=== PATIENT | female | born 1940 | race Caucasian/White ===

== ENCOUNTER 2016-10-17 19:38 | Emergency (ER) | payer MEDICARE, OTHER ==
[~2016-10-17 19:38] MED LIST: ATIVAN1 MG PO; AUGMENTIN 875-1 EACH PO; CARAFATE1 GM PO; DEMADEX20 MG PO; HYDROCODONE-APA1 TAB PO; MICRO-K10 MEQ PO; MUCINEX OTC; TRANDATE100 MG PO; VITAMIN B 12
[2016-10-17 20:40] LABS: BILIRUBIN NEGATIVE (NEGATIVE); BLOOD 1+ Ery/uL (NEGATIVE); CLARITY CLEAR (CLEAR); COLOR YELLOW (YELLOW); GLUCOSE (U) NORMAL (NORMAL); KETONE (U) NEGATIVE (NEGATIVE); LEUKOCYTES TRACE Leu/uL (NEGATIVE); NITRITE NEGATIVE (NEGATIVE); PROTEIN NEGATIVE (NEGATIVE); UROBILINOGEN 0.2 mg/dL (0.2-1.0); pH 5.5 (5.0-9.0)
[2016-10-17 20:46] LABS: BACTERIA TRACE; URINARY WBC RARE
[2016-10-17 22:08] LABS: HCT 41.3 % (37.0-47.0); HGB 13.2 g/dl (12.5-16.0); MCH 29.8 pg (25.0-31.0); MCV 93.2 fL (78.0-100.0); MPV 10.1 fL (6.0-9.5); RBC 4.43 M/uL (4.20-5.40); RDW 13.8 % (11.5-14.0); WBC 12.1 K/uL (4.0-10.5)
[2016-10-17 22:24] LABS: ALBUMIN 4.1 g/dL (3.4-4.8); BILIRUBIN - TOTAL 0.4 mg/dL (0.1-1.0); CREATININE 0.8 mg/dL (0.5-1.0); GLOBULIN (CALCULATION) 2.9 g/dL (2.2-4.2); POTASSIUM 3.6 mmol/L (3.5-5.1)
== END 2016-10-17 23:04 | disposition home or self-care (01) ==
LOC: FER 19:38
PROVIDERS: Nurse Practitioner
DX: R21 Rash and other nonspecific skin eruption (principal); I11.9 Hypertensive heart disease without heart failure; I48.91 Unspecified atrial fibrillation; Z88.0 Allergy status to penicillin; Z88.5 Allergy status to narcotic agent; Z91.041 Radiographic dye allergy status; Z95.0 Presence of cardiac pacemaker
CPT/HCPCS: 36415; 80053; 81001

== ENCOUNTER 2016-11-27 13:54 | Emergency (ER) | payer MEDICARE, OTHER ==
[2016-11-27 16:47] LABS: BASOPHIL 0.2 % (0-2); EOSINOPHIL 1.4 % (0-7); HCT 39.9 % (37.0-47.0); HGB 13.1 g/dl (12.5-16.0); LYMPHOCYTE 4.3 % (15-48); MCH 30.7 pg (25.0-31.0); MCHC 32.8 g/dL (32.0-36.0); MCV 93.4 fL (78.0-100.0); MONOCYTE 6.5 % (0-12); MPV 10.5 fL (6.0-9.5); NEUTROPHIL 87.6 % (41-80); PLT 224 K/uL (150-400); RBC 4.27 M/uL (4.20-5.40); RDW 13.2 % (11.5-14.0); WBC 16.6 K/uL (4.0-10.5)
== END 2016-11-27 18:02 | disposition home or self-care (01) ==
LOC: FER 13:54
PROVIDERS: Nurse Practitioner Family
DX: M10.021 Idiopathic gout, right elbow (principal); I10 Essential (primary) hypertension; I48.91 Unspecified atrial fibrillation; Z88.5 Allergy status to narcotic agent; Z88.8 Allergy status to other drugs, medicaments and biological substances; Z95.0 Presence of cardiac pacemaker; Z79.899 Other long term (current) drug therapy
CPT/HCPCS: 36415; 73080; 84550; 85025; 99283

== ENCOUNTER 2016-12-18 12:12 | Emergency (ER) | payer MEDICARE, OTHER ==
[2016-12-18 13:35] LABS: BILIRUBIN NEGATIVE (NEGATIVE); BLOOD TRACE-INTACT Ery/uL (NEGATIVE); CLARITY CLEAR (CLEAR); COLOR YELLOW (YELLOW); GLUCOSE (U) NORMAL (NORMAL); KETONE (U) NEGATIVE (NEGATIVE); LEUKOCYTES 2+ Leu/uL (NEGATIVE); NITRITE NEGATIVE (NEGATIVE); PROTEIN NEGATIVE (NEGATIVE); UROBILINOGEN 0.2 mg/dL (0.2-1.0)
[2016-12-18 13:42] LABS: BASOPHIL 0.5 % (0-2); EOSINOPHIL 3.1 % (0-7); HCT 39.8 % (37.0-47.0); HGB 12.6 g/dl (12.5-16.0); LYMPHOCYTE 9.2 % (15-48); MCH 29.9 pg (25.0-31.0); MCHC 31.7 g/dL (32.0-36.0); MCV 94.5 fL (78.0-100.0); MONOCYTE 8.1 % (0-12); MPV 10.9 fL (6.0-9.5); NEUTROPHIL 79.1 % (41-80); PLT 223 K/uL (150-400); RBC 4.21 M/uL (4.20-5.40); RDW 13.3 % (11.5-14.0); WBC 9.9 K/uL (4.0-10.5)
[2016-12-18 13:56] LABS: BACTERIA TRACE
[2016-12-18 13:59] LABS: LACTIC ACID 0.9 mmol/L (0.5-2.2)
[2016-12-18 14:00] LABS: ALBUMIN 4.4 g/dL (3.4-4.8); BILIRUBIN - TOTAL 0.7 mg/dL (0.1-1.0); CREATININE 0.8 mg/dL (0.5-1.0); GLOBULIN (CALCULATION) 2.6 g/dL (2.2-4.2); POTASSIUM 3.8 mmol/L (3.5-5.1)
== END 2016-12-18 16:50 | disposition home or self-care (01) ==
LOC: FER 12:12
PROVIDERS: Nurse Practitioner
DX: N30.00 Acute cystitis without hematuria (principal); I48.91 Unspecified atrial fibrillation; Z85.038 Personal history of other malignant neoplasm of large intestine; Z90.710 Acquired absence of both cervix and uterus; Z90.49 Acquired absence of other specified parts of digestive tract; Z95.0 Presence of cardiac pacemaker; Z88.5 Allergy status to narcotic agent; M85.80 Other specified disorders of bone density and structure, unspecified site; M25.50 Pain in unspecified joint; M89.8X9 Other specified disorders of bone, unspecified site; M85.852 Other specified disorders of bone density and structure, left thigh
CPT/HCPCS: 36415; 71250; 77080; 80053; 81001; 82150; 83605; 83690; 85025; 87088; J2060

== ENCOUNTER 2020-09-13 00:18 | Emergency (ER) | payer MEDICARE, OTHER ==
[~2020-09-13 00:18] MED LIST changes: +ALDACTONE25 MG PO; +ALLOPURINOL300 MG PO; +AMOX TR-K CLV1 EAC4 PO; +ATIVAN1 M1 PO; +BUMEX1 MG PO; +CLEOCIN300 MG PO; +COLACE100 MG PO; +COLCHICINE0.6 M1 PO; +COLCHICINE0.6 MG PO; +COLCRYS0.6 MG PO; +DICLOFENAC SODI50 MG PO; +FLEXERIL10 MG PO; +FLEXERIL5 MG PO; +K-DUR20 MEQ PO; +KEFLEX250 MG PO; +KETOROLAC TROME10 MG PO; +LABETALOL HCL200 MG PO; +LACTINEX1 EACH PO; +LASIX40 MG PO; +MOBIC7.5 MG PO; +NEURONTIN100 MG PO; +NORVASC5 MG PO; +PRAMIPEXOLE0.125 MG PO; +PREDNISONE 20MG20 MG PO; +PYRIDIUM100 MG PO; +SYNTHROID25 MCG PO; +TORSEMIDE100 MG PO; +TRIAMCINOLONE 080 GM TOP; +ULTRAM50 MG PO; +XARELTO20 MG PO; +ZOFRAN8 MG PO
[2020-09-13 00:51] LABS: BASOPHIL 0.3 % (0-2); EOSINOPHIL 0.3 % (0-7); HCT 36.9 % (37.0-47.0); HGB 11.6 g/dl (12.5-16.0); LYMPHOCYTE 5.5 % (15-48); MCH 29.7 pg (25.0-31.0); MCHC 31.4 g/dL (32.0-36.0); MCV 94.4 fL (78.0-100.0); MONOCYTE 8.3 % (0-12); MPV 11.6 fL (6.0-9.5); NRBC 0; PLT 260 K/uL (150-400); RBC 3.91 M/uL (4.20-5.40); RDW 13.6 % (11.5-14.0); WBC 18.6 K/uL (4.0-10.5)
[2020-09-13 01:12] LABS: ALBUMIN 3.5 g/dL (3.4-5.0); BILIRUBIN - TOTAL 0.6 mg/dL (0.2-1.0); BUN/CREAT RATIO (CALC) 23.2 RATIO; C-REACTIVE PROTEIN 13.9 mg/dL (<=0.90); CREATININE 0.95 mg/dL (0.51-0.95); TOTAL PROTEIN 7.5 g/dL (6.4-8.2)
[2020-09-13 01:18] LABS: POTASSIUM 4.6 mmol/L (3.5-5.1)
[2020-09-13] MEDS ORDERED: CLEOCIN300 MG PO (02:15)
[2020-09-13] MEDS ORDERED: DICLOFENAC SODI50 MG PO (02:15)
[2020-09-13] MEDS ORDERED: NORCO 5-325 TA1 EACH PO (02:15)
== END 2020-09-13 02:25 | disposition home or self-care (01) ==
LOC: FER 00:18
PROVIDERS: Emergency Medicine Emergency Medical Services
DX: M10.032 Idiopathic gout, left wrist (principal); M10.042 Idiopathic gout, left hand; I48.91 Unspecified atrial fibrillation; J44.9 Chronic obstructive pulmonary disease, unspecified; I11.0 Hypertensive heart disease with heart failure; I50.9 Heart failure, unspecified; Z99.81 Dependence on supplemental oxygen; Z88.5 Allergy status to narcotic agent; Z88.6 Allergy status to analgesic agent; Z91.041 Radiographic dye allergy status
CPT/HCPCS: 36415; 73110; 80053; 83880; 84145; 84550; 85025; 86140; J1885; J2405

== ENCOUNTER 2021-08-03 17:43 | Emergency (ER) | payer MEDICARE, OTHER ==
[~2021-08-03 17:43] MED LIST changes: +ALLOPURINOL100 MG PO; +NORCO 5-325 TA1 EACH PO; +VIBRAMYCIN100 MG PO
[2021-08-03 18:20] LABS: BASOPHIL 0.2 % (0-2); EOSINOPHIL 0.2 % (0-7); HCT 35.1 % (37.0-47.0); HGB 11.2 g/dl (12.5-16.0); LYMPHOCYTE 2.7 % (15-48); MCH 30.5 pg (25.0-31.0); MCHC 31.9 g/dL (32.0-36.0); MCV 95.6 fL (78.0-100.0); MONOCYTE 8.4 % (0-12); MPV 11.2 fL (6.0-9.5); NEUTROPHIL 87.9 % (41-80); NRBC 0; PLT 263 K/uL (150-400); RBC 3.67 M/uL (4.20-5.40); RDW 13.2 % (11.5-14.0); WBC 21.6 K/uL (4.0-10.5)
[2021-08-03 18:40] LABS: ALBUMIN 3.4 g/dL (3.4-5.0); BILIRUBIN - TOTAL 0.7 mg/dL (0.2-1.0); BUN/CREAT RATIO (CALC) 33.5 RATIO; CREATININE 1.58 mg/dL (0.51-0.95); POTASSIUM 5.6 mmol/L (3.5-5.1); TOTAL PROTEIN 7.4 g/dL (6.4-8.2)
[2021-08-03 18:57] LABS: INR 1.31 (0.9-1.2); PROTHROMBIN TIME 15.6 SECONDS (11.8-13.4); PTT 33.1 SECONDS (24.4-34.7)
[2021-08-03 18:59] LABS: CORONAVIRUS 2019 SARS-COV-2 NEGATIVE (NEGATIVE); INFLUENZA A NAA NEGATIVE (NEGATIVE)
[2021-08-03 19:19] LABS: LACTIC ACID 1.4 mmol/L (0.4-1.9)
[2021-08-03 22:05] LABS: BILIRUBIN NEGATIVE (NEGATIVE); BLOOD NEGATIVE Ery/uL (NEGATIVE); CLARITY CLEAR (CLEAR); COLOR YELLOW (YELLOW); GLUCOSE (U) NORMAL (NORMAL); LEUKOCYTES NEGATIVE Leu/uL (NEGATIVE); NITRITE NEGATIVE (NEGATIVE); PROTEIN NEGATIVE (NEGATIVE); SPECIFIC GRAVITY 1.015 (1.001-1.030); UROBILINOGEN 0.2 mg/dL (0.2-1.0); pH 5.5 (5.0-9.0)
[2021-08-04 08:52] LABS: BASOPHIL 0.3 % (0-2); EOSINOPHIL 1.6 % (0-7); HCT 35.3 % (37.0-47.0); LYMPHOCYTE 5.4 % (15-48); MCH 30.6 pg (25.0-31.0); MCHC 31.2 g/dL (32.0-36.0); MCV 98.3 fL (78.0-100.0); MONOCYTE 7.9 % (0-12); MPV 12.1 fL (6.0-9.5); NEUTROPHIL 84.2 % (41-80); NRBC 0; PLT 206 K/uL (150-400); RBC 3.59 M/uL (4.20-5.40); RDW 13.1 % (11.5-14.0); WBC 17.3 K/uL (4.0-10.5)
[2021-08-04 09:20] LABS: CREATININE 1.39 mg/dL (0.51-0.95); POTASSIUM 4.2 mmol/L (3.5-5.1)
== END 2021-08-04 09:04 | disposition other institution (70) ==
LOC: FER 17:43
PROVIDERS: Emergency Medicine; Emergency Medicine Emergency Medical Services
DX: L02.211 Cutaneous abscess of abdominal wall (principal); L03.311 Cellulitis of abdominal wall; J96.01 Acute respiratory failure with hypoxia; I11.0 Hypertensive heart disease with heart failure; I50.9 Heart failure, unspecified; I48.91 Unspecified atrial fibrillation; J44.9 Chronic obstructive pulmonary disease, unspecified; Z88.6 Allergy status to analgesic agent; Z88.5 Allergy status to narcotic agent; Z20.822 Contact with and (suspected) exposure to COVID-19
CPT/HCPCS: 36415; 36600; 71250; 80048; 80053; 81003; 82803; 83605; 84145; 85025; 85610; 85730; 87040; 87077; 87088; 87186; 93005; C9113; J2405; J2543; J7030; U0002

== ENCOUNTER 2022-03-26 12:25 | Emergency (ER) | payer MEDICARE, OTHER ==
[2022-03-26 13:40] LABS: BASOPHIL 0.6 % (0-2); EOSINOPHIL 3.3 % (0-7); HCT 39.4 % (37.0-47.0); HGB 12.3 g/dl (12.5-16.0); LYMPHOCYTE 14.1 % (15-48); MCH 30.3 pg (25.0-31.0); MCHC 31.2 g/dL (32.0-36.0); MONOCYTE 6.9 % (0-12); MPV 11.3 fL (6.0-9.5); NEUTROPHIL 74.8 % (41-80); NRBC 0; PLT 248 K/uL (150-400); RBC 4.06 M/uL (4.20-5.40); RDW 13.7 % (11.5-14.0); WBC 9.3 K/uL (4.0-10.5)
[2022-03-26 14:33] LABS: BUN/CREAT RATIO (CALC) 9.9 RATIO; CREATININE 0.81 mg/dL (0.51-0.95); POTASSIUM 3.3 mmol/L (3.5-5.1)
== END 2022-03-26 15:41 | disposition home or self-care (01) ==
LOC: FER 12:25
PROVIDERS: Nurse Practitioner Family
DX: F41.9 Anxiety disorder, unspecified (principal); E87.6 Hypokalemia; I10 Essential (primary) hypertension; Z88.8 Allergy status to other drugs, medicaments and biological substances; Z88.5 Allergy status to narcotic agent; Z88.6 Allergy status to analgesic agent; Z91.041 Radiographic dye allergy status; Z28.310 Unvaccinated for COVID-19
CPT/HCPCS: 36415; 71045; 80048; 84484; 85025; 93005